=== PATIENT | male | born 1995 | race Two or more races ===

== ENCOUNTER 2022-09-03 19:30 | Emergency (ER) | payer SELFPAY ==
[~2022-09-03] VITALS: Ht 167.6 cm; Wt 109.1 kg
[2022-09-03] MEDS ORDERED: IBUP600T27 PO (21:42)
[2022-09-03] MEDS ORDERED: ONDA-144 PO (21:42)
[2022-09-04 00:30] VITALS: BP 143/87
== END 2022-09-04 01:01 | disposition home or self-care (01) ==
LOC: ER 19:34
DX: M54.12 Radiculopathy, cervical region (principal)
CPT/HCPCS: 72040